=== PATIENT | female | born 1980 | race Caucasian/White ===

== ENCOUNTER 2020-12-16 08:58 | Outpatient (CLI) | payer MEDICARE ==
[~2020-12-16] VITALS: Ht 172.7 cm; Wt 122.3 kg
[2020-12-16] VITALS (15 sets, daily range): BP systolic 94–108; BP diastolic 55–78; PULSE 60–86; TEMP 98.9
[~2020-12-16 08:58] MED LIST: LAMICTAL 25MG T25 MG PO; LEVOXYL0.088 MG PO; TOPAMAX PO; ZOLOFT 100MG100 MG PO
--- NOTE | 2020-12-16 10:19 | NUR ---
PT TAKEN TO CT AND PLACED ON TABLE. MONITORING EQUIPMENT PLACED
--- NOTE | 2020-12-16 11:05 | NUR ---
Report from [facility]. Transferred from Radiology by [email or web address]. [email or web address]. bedside
--- NOTE | 2020-12-16 14:09 | NUR ---
INT discontinued intact. Ok to discharge home per Dr. Bishop.
== END 2020-12-16 14:24 | disposition home or self-care (01) ==
LOC: COL.RAD 08:58
DX: R91.8 Other nonspecific abnormal finding of lung field (principal)
CPT/HCPCS: J2250; J3010

== ENCOUNTER → 2021-08-22 | Outpatient (CLI) | payer MEDICARE | LOC: COL.RAD 07:50 | DX: K52.9 Noninfective gastroenteritis and colitis, unspecified (principal); R68.81 Early satiety | CPT/HCPCS: A9541 ==